=== PATIENT | female | born 1995 | race Caucasian/White ===

== ENCOUNTER 2017-08-11 15:18 | Inpatient (IN) | payer BC, OTHER ==
[~2017-08-11] VITALS: Ht 180.3 cm; Wt 129.5 kg
[2017-08-21] MEDS ORDERED: OXYTOCIN 30U/ 0.9% NaCL 500ML 500 ML IV SCH (10:02)
[2017-08-21] MEDS ORDERED: LACTATED RINGERS 1,000 ML IV SCH (10:02)
[2017-08-21] MEDS ORDERED: METOCLOPRAMIDE 5 MG/ML, 2ML IV ONE (10:30)
[2017-08-21] MEDS ORDERED: SODIUM CITRATE/CITRIC ACID 30 ML UDC PO ONE (10:30)
[2017-08-21] MEDS ORDERED: LACTATED RINGERS 1,000 ML IVBOLUS ONE (10:30)
[2017-08-21 10:35] VITALS: BP 154/84
[2017-08-21 10:35] LABS: MD YES; MEAN CORPUSCULAR HEMOGLOBIN 29.8 pg (27.0-34.8); MEAN CORPUSCULAR HGB CONC 33.6 g/dL (32.4-35.8); MEAN CORPUSCULAR VOLUME 88.8 fL (80-100); MEAN PLATELET VOLUME 8.4 fL (7.4-10.4); PLATELET COUNT 239 x10^3/uL (130-400); RED BLOOD COUNT 4.74 x10^6/uL (3.82-5.3); RED CELL DISTRIBUTION WIDTH 14.4 % (9.6-15.2)
[2017-08-21] MEDS ORDERED: FENTANYL PF 100 MCG/2ML IV PRN (11:00)
[2017-08-21] MEDS ORDERED: hydrALAzine 20 MG/ML, 1ML IV PRN (11:00)
[2017-08-21] MEDS ORDERED: ONDANSETRON 2MG/ML, 2ML IVPush PRN (11:00)
[2017-08-21] MEDS ORDERED: HYDROmorphone 1 MG/ML, 1ML IV PRN (11:00)
[2017-08-21] MEDS ORDERED: OXYcodone 5 MG/5 ML ORAL.SOL UDC PO PRN (11:00)
[2017-08-21] MEDS ORDERED: ALBUTEROL SULFATE 2.5 MG/3 ML NPPB PRN (11:00)
[2017-08-21] MEDS ORDERED: PROMETHAZINE 25 MG/ML, 1ML IV PRN (11:00)
[2017-08-21] MEDS ORDERED: MIDAZOLAM 1 MG/ML, 2ML IV PRN (11:00)
[2017-08-21] MEDS ORDERED: MEPERIDINE/PF 25MG/0.5ML IVPush PRN (11:00)
[2017-08-21] MEDS ORDERED: LABETALOL 5MG/ML, 20ML IV PRN (11:00)
[2017-08-21] MEDS ORDERED: HYDROcodone/APAP 7.5-325MG/15ML UDC PO PRN (11:00)
[2017-08-21] MEDS ORDERED: EPHEDRINE 50 MG/ML, 1ML IVPush PRN (11:00)
[2017-08-21 11:01] LABS: <PLATELET ESTIMATE> ADEQUATE; <PLT MORPHOLOGY> NORMAL PLT MORPH; <RBC MORPHOLOGY> NORMAL; EOS#(MANUAL) 0.15 x10^3/uL (0.0-0.4); EOS% (MANUAL) 1 % (1-7); LYMPH#(MANUAL) 2.27 x10^3/uL (1-3.4); LYMPHS% (MANUAL) 15 % (22-44); MONOS#(MANUAL) 1.36 x10^3/uL (0.3-2.7); MONOS% (MANUAL) 9 % (2-9); SEG#(MANUAL) 11.33 x10^3/uL (1.8-6.8); SEGS% (MANUAL) 75 % (42-75)
[2017-08-21] MEDS ORDERED: NEWBORN KIT ONE (11:02)
[2017-08-21] MEDS ORDERED: SODIUM CITRATE/CITRIC ACID 30 ML UDC ONE ×2 (11:02→11:59)
[2017-08-21] MEDS ORDERED: OXYTOCIN 30U/ 0.9% NaCL 500ML 500 ML ONE ×2 (11:03→14:50)
[2017-08-21] MEDS ORDERED: METOCLOPRAMIDE 5 MG/ML, 2ML ONE (11:03)
[2017-08-21] MEDS ORDERED: EPHEDRINE 50 MG/ML, 1ML ONE (11:04)
[2017-08-21] MEDS ORDERED: CEFAZOLIN 1,000 MG ONE (11:04)
[2017-08-21] MEDS ORDERED: ONDANSETRON 2MG/ML, 2ML ONE (11:04)
[2017-08-21] MEDS ORDERED: DEXAMETHASONE 4 MG/ML, 1ML ONE (11:04)
[2017-08-21] MEDS ORDERED: KETOROLAC 30 MG/1 ML ONE (11:04)
[2017-08-21] MEDS ORDERED: PHENYLEPHRINE 10 MG/ML ONE (11:04)
[2017-08-21] MEDS ORDERED: OXYTOCIN 10 UNITS/ML, 1ML ONE (11:04)
[2017-08-21] MEDS ORDERED: BUPIVACAINE/PF 0.5% ONE (11:05)
[2017-08-21] MEDS ORDERED: FENTANYL PF 100 MCG/2ML ONE (11:05)
[2017-08-21] MEDS: LACTATED RINGERS 1,000 ML IV SCH ×4 (11:58→21:58)
[2017-08-21] MEDS ORDERED: MEASLES,MUMPS&RUBELLA VACC/PF 0.5 ML SQ-VACC PRN (12:00)
[2017-08-21] MEDS ORDERED: ONDANSETRON 2MG/ML, 2ML IV PRN (12:00)
[2017-08-21] MEDS ORDERED: MISOPROSTOL 200 MCG TABLET PR PRN (12:00)
[2017-08-21] MEDS ORDERED: morphine SULFATE 10 MG/ML, 1ML IVPush PRN (12:00)
[2017-08-21] MEDS ORDERED: ACETAMINOPHEN 325 MG TABLET PO PRN ×2 (12:00)
[2017-08-21] MEDS: KETOROLAC 30 MG/1 ML IV SCH ×2 (12:45→18:40)
[2017-08-21] MEDS: OXYTOCIN 30U/ 0.9% NaCL 500ML 500 ML IV SCH ×2 (14:53→21:58)
[2017-08-21 15:15] VITALS: BP 117/49
[2017-08-21 15:50] VITALS: BP 111/67
[2017-08-21] MEDS: OXYcodone/APAP 5/325MG TABLET PO PRN ×3 (16:02→21:38)
[2017-08-21 16:30] VITALS: BP 135/72
[2017-08-21 19:05] VITALS: BP 122/66
[2017-08-21 20:47] LABS: BASOPHILS # (AUTO) 0.01 x10^3/uL (0-0.1); BASOPHILS % (AUTO) 0 % (0-1); EOSINOPHILS # (AUTO) 0.01 x10^3/uL (0-0.4); EOSINOPHILS % (AUTO) 0 % (1-7); LYMPHOCYTES % (AUTO) 9 % (22-44); MD NO; MEAN CORPUSCULAR HGB CONC 33.8 g/dL (32.4-35.8); MEAN CORPUSCULAR VOLUME 88.9 fL (80-100); MEAN PLATELET VOLUME 8.4 fL (7.4-10.4); MONOCYTES # (AUTO) 0.64 x10^3/uL (0.2-0.8); MONOCYTES % (AUTO) 4 % (2-9); NEUTROPHILS # (AUTO) 13.07 x10^3/uL (1.8-6.8); NEUTROPHILS % (AUTO) 86 % (42-75); PLATELET COUNT 213 x10^3/uL (130-400); RED BLOOD COUNT 4.02 x10^6/uL (3.82-5.3); RED CELL DISTRIBUTION WIDTH 13.9 % (9.6-15.2)
[2017-08-22] MEDS: KETOROLAC 30 MG/1 ML IV SCH ×4 (00:20→19:28)
[2017-08-22 00:24] VITALS: BP 125/68
[2017-08-22] MEDS: OXYcodone/APAP 5/325MG TABLET PO PRN ×2 (01:52→05:43)
[2017-08-22] MEDS: LACTATED RINGERS 1,000 ML IV SCH ×5 (03:00→19:58)
[2017-08-22] MEDS: morphine SULFATE 10 MG/ML, 1ML IVPush PRN ×2 (03:01→07:46)
[2017-08-22 05:30] VITALS: BP 124/71
[2017-08-22] MEDS: CALCIUM CARBONATE 500 MG TAB.CHEW PO PRN ×2 (06:43→14:56)
[2017-08-22 07:20] VITALS: BP 121/58
[2017-08-22] MEDS: DOCUSATE 100 MG CAPSULE PO PRN ×2 (07:46→19:28)
[2017-08-22] MEDS: PRENATAL VIT/IRON/FA 1 EACH TABLET PO SCH (07:46)
[2017-08-22] MEDS: OXYTOCIN 30U/ 0.9% NaCL 500ML 500 ML IV SCH ×2 (07:58→17:58)
[2017-08-22] MEDS ORDERED: HYDROcodone/APAP 7.5-325MG/15ML UDC PO PRN (10:00)
[2017-08-22 12:00] VITALS: BP 135/81
[2017-08-22] MEDS ORDERED: DIPHENHYDRAMINE 12.5MG/5ML, 10ML UDC PO PRN (18:00)
[2017-08-22 19:40] VITALS: BP 123/75
[2017-08-23] MEDS: KETOROLAC 30 MG/1 ML IV SCH ×2 (00:56→07:10)
[2017-08-23] MEDS: LACTATED RINGERS 1,000 ML IV SCH ×2 (03:58)
[2017-08-23] MEDS: OXYTOCIN 30U/ 0.9% NaCL 500ML 500 ML IV SCH ×3 (03:58→23:58)
[2017-08-23 07:30] VITALS: BP 140/80
[2017-08-23] MEDS: PRENATAL VIT/IRON/FA 1 EACH TABLET PO SCH (09:00)
[2017-08-23] MEDS: IBUPROFEN 600 MG TABLET PO PRN ×2 (13:56→20:56)
[2017-08-23 20:00] VITALS: BP 135/78
[2017-08-23] MEDS: CALCIUM CARBONATE 500 MG TAB.CHEW PO PRN (20:56)
[2017-08-23] MEDS ORDERED: HYDROcodone/APAP 10/325 MG TABLET ONE (23:23)
[2017-08-23] MEDS ORDERED: HYDROcodone/APAP 5/325 TABLET ONE (23:23)
[2017-08-24] MEDS ORDERED: HYDROcodone/APAP 10/325 MG TABLET ONE (03:43)
[2017-08-24] MEDS ORDERED: HYDROcodone/APAP 5/325 TABLET ONE ×2 (03:43→08:07)
[2017-08-24] MEDS: IBUPROFEN 600 MG TABLET PO PRN ×3 (03:49→14:16)
[2017-08-24 07:55] VITALS: BP 132/80
[2017-08-24] MEDS: DOCUSATE 100 MG CAPSULE PO PRN (08:09)
[2017-08-24] MEDS: PRENATAL VIT/IRON/FA 1 EACH TABLET PO SCH (08:09)
[2017-08-24] MEDS: OXYTOCIN 30U/ 0.9% NaCL 500ML 500 ML IV SCH (09:58)
[2017-08-24] MEDS ORDERED: OXYC-302 PO (10:45)
[2017-08-24] MEDS ORDERED: IBUP-1222 PO (10:46)
== END 2017-08-24 16:55 | disposition home or self-care (01) | DRG 766 ==
LOC: LDIP 08-21 09:56 → 2NW 08-21 15:00
PROVIDERS: ADMIT Obstetrics & Gynecology; ATTEND Obstetrics & Gynecology
PROC: 10D00Z1 Extraction of Products of Conception, Low, Open Approach (ICD-10-PCS; principal; 2017-08-21)
DX: O48.0 Post-term pregnancy (principal); O36.63X0 Maternal care for excessive fetal growth, third trimester, not applicable or unspecified; Z37.0 Single live birth; O77.0 Labor and delivery complicated by meconium in amniotic fluid; Z3A.41 41 weeks gestation of pregnancy
CPT/HCPCS: 36415; 82803; 85025; 86850; 86900; J0690; J1100; J1885; J2405; J3010; J3490; J2270; J2370; J2590; J2765; J7120